=== PATIENT | female | born 1990 | race Caucasian/White ===

== ENCOUNTER 2020-03-17 06:21 | Inpatient (IN) | payer OTHER, SELFPAY ==
[2020-03-17] VITALS (51 sets, daily range): BP systolic 68–141; BP diastolic 43–96; PULSE 64–105; RESP 16; TEMP 36.6–37.1; O2SAT 99–100; BMI 28.9
--- OUTSIDE RECORDS SUMMARY | 2020-03-17 06:49 | XMS_ITS | Encounter Summary ---
:1990 Author Care Team Providers Name Role Phone Santo Barnes Primary Care Provider [phone] Reason for Visit None recorded. Assessment and Plan 1. Small for gestational age fet us ? US, obstetric, 3rd trimest er Discussion Note: None recorded.Patient educational handouts: No information available. Plan of Care Reminders Provider Appointments Ob Routine Manas Ashford CNM 03/20/2020 1:45PM Lab None ? ? recorded. Referral None ? ? recorded. Procedures None ? ? recorded. Surgeries None ? ? recorded. Imaging US, [place] [facility], 3Rd 01/19/2020 Trimester Medications Name Start Date ? ? ? Medications Administered None recorded. Vitals None recorded. Results Lab Results None recorded. Allergies Code Code System Name Reaction Severity Onset NKDA ? ? ? Problems Name Status Onset Date Source ? Active 09/14/2019 ? Procedures Date Name Performed by ?
--- OUTSIDE RECORDS SUMMARY | 2020-03-17 06:49 | XMS_ITS | Encounter Summary ---
:1990 Author Care Team Providers Name Role Phone Santo Barnes Primary Care Provider [phone] Reason for Visit None recorded. Assessment and Plan 1. Reduced movement ? non-stress test Discussion Note: None recorded.Patient educational handouts: No information available. Plan of Care Reminders Provider Appointments Ob Routine Manas Ashford CNM 03/20/2020 1:45PM Lab None ? ? recorded. Referral None ? ? recorded. Procedures None ? ? recorded. Surgeries None ? ? recorded. Imaging Non-stress [place] Test 03/13/2020 Medications Name Start Date ? ? ? Medications Administered None recorded. Vitals None recorded. Results Lab Results None recorded. Allergies Code Code System Name Reaction Severity Onset NKDA ? ? ? Problems Name Status Onset Date Source ? Active 09/14/2019 ? Procedures Date Name Performed by ?
--- OUTSIDE RECORDS SUMMARY | 2020-03-17 06:49 | XMS_ITS ---
:1990 Author Care Team Providers Name Role Phone YOAV MORALES Primary Care Provider [phone] Allergies Code Code System Name Reaction Severity Status Onset NKDA ? Medications Name Status Start Date Stop Date ? ? Boostrix Tdap 2.5 Lf unit-8 mcg-5 Completed ? 03/06/2020 Lf/0.5 mL intramuscular syringe Flublok Quad (PF) 180 mcg (45 Completed ? 03/06/2020 mcg x 4)/0.5 mL IM syringe Junel FE 05/01 (28) 1 mg-20 mcg (21)/75 Completed ? 08/16/2019 mg (7) tablet metoclopramide hydrochloride 10 mg Completed ? 03/06/2020 tabs ondansetron 4 mg disintegrating tablet Completed ? 03/06/2020 Place 1 tablet under tongue every 6-8 hours as needed for nause a ondansetron hydrochloride 8 mg tabs Completed ? 03/06/2020 ondansetron odt 4 mg tbdp Completed ? 03/06 Active ? Not available promethazine 25 mg tablet Completed ? 2019 Take 1 tablet every 4 hours by oral route. promethazine hydrochloride 25 mg tabs Completed ? 03/06/2020 Reglan 10 mg tablet Completed ? 03/06/2020 Take 1 tablet 4 times a day by oral route. Zofran 8 mg tablet Completed ? 03/06/2020 Take 1 tablet every 8 hours by oral route for 2 days. Problems Name Status Onset Date Source ? Active 09/14/2019 ? Procedures Date Name Performed by ?
--- OUTSIDE RECORDS SUMMARY | 2020-03-17 06:49 | XMS_ITS | Encounter Summary ---
:1990 Author Care Team Providers Name Role Phone Santo Barnes Primary Care Provider [phone] Reason for Visit OB visit OB [id number] EDC 03/23/2020 LMP 06/04/2019 Assessment and Plan Assessment Note Patient is __35_weeks . Dis cussed plan. 1. Routine care Discussion Note: None recorded.Patient educational handouts: No information available. Plan of Care Reminders Provider Appointments Ob Routine Manas Ashford CNM 03/20/2020 1:45PM Lab None ? ? recorded. Referral None ? ? recorded. Procedures None ? ? recorded. Surgeries None ? ? recorded. Imaging None ? ? recorded. Medications Name Start Date ? ? ? Medications Administered None recorded. Vitals Height Weight BMI Blood Pressure 5 ft 9.75 in 204 lbs 29.5 kg/m2 130/80 mm[Hg] Results Lab Results None recorded. Allergies Code Code System Name Reaction Severity Onset NKDA ? ? ? Problems Name Status Onset Date Source ? Pre
--- OUTSIDE RECORDS SUMMARY | 2020-03-17 06:49 | XMS_ITS | Encounter Summary ---
:1990 Author Care Team Providers Name Role Phone Santo Barnes Primary Care Provider [phone] Reason for Visit OB visit 30wks 6days Assessment and Plan Assessment Note Patient is ___weeks . Discu ssed plan. 1. Routine care Discussion Note: None [...] BMI Blood Pressure 5 ft 9.75 in 196 lbs 28.3 kg/m2 126/87 mm[Hg] Results Lab Results None recorded. Allergies Code Code System Name Reaction Severity Onset NKDA ? ? ? Problems Name Status Onset Date Source ? Active
--- OUTSIDE RECORDS SUMMARY | 2020-03-17 06:49 | XMS_ITS | Encounter Summary ---
:1990 Author Care Team Providers Name Role Phone Santo Barnes Primary Care Provider [phone] Reason for Visit None recorded. Assessment and Plan 1. condition affecting obs tetrical care of mother ? US, obstetric, follow-up ? US, obstetric, biophysical profile Discussion Note: None recorded.Patient educational handouts: No information available. Plan of Care Reminders Provider Appointments Ob Routine Manas Ashford CNM 03/20/2020 1:45PM Lab None recorded. ? ? Referral None recorded. ? ? Procedures None recorded. ? ? Surgeries None recorded. ? ? Imaging US, Obstetric, [place] Follow-up 01/04/2020 ? US, Obstetric, [place] Biophysical Profile 01/04/2020 Medications Name Start Date ? ? ? Medications Administered None recorded. Vitals None recorded. Results Lab Results None recorded. Allergies Code Code System Name Reaction Severity Onset NKDA ? ? ? Problems Name
--- OUTSIDE RECORDS SUMMARY | 2020-03-17 06:49 | XMS_ITS | Encounter Summary ---
:1990 Author Care Team Providers Name Role Phone Santo Barnes Primary Care Provider [phone] Reason for Visit OB visit OB [id number] EDC 03/23/2020 LMP 06/10/2019 Assessment and Plan Assessment Note Patient is ___weeks . Discu ssed plan. Discussion Note: None recorded.Patient educational handouts: No [...] BMI Blood Pressure 5 ft 9.75 in 188 lbs 27.2 kg/m2 128/80 mm[Hg] Results Lab Results None recorded. Allergies Code Code System Name Reaction Severity Onset NKDA ? ? ? Problems Name Status Onset Date Source ? Active 09/14/2019 ? Procedures
--- OUTSIDE RECORDS SUMMARY | 2020-03-17 06:49 | XMS_ITS | Encounter Summary ---
:1990 Author Care Team Providers Name Role Phone Santo Barnes Primary Care Provider [phone] Reason for Visit OB visit OB [id number] EDC 03/23/2020 LMP 06/10/2019 Assessment and Plan Assessment Note Patient is _36__weeks . Dis cussed plan. 1. Routine care [...] BMI Blood Pressure 5 ft 9.75 in 205 lbs 29.6 kg/m2 111/76 mm[Hg] Results Lab Results None recorded. Allergies Code Code System Name Reaction Severity Onset NKDA ? ? ? Problems Name Status Onset Date Source ? Pre
--- OUTSIDE RECORDS SUMMARY | 2020-03-17 06:49 | XMS_ITS | Encounter Summary ---
:1990 Author Care Team Providers Name Role Phone Santo Barnes Primary Care Provider [phone] Reason for Visit OB visit Assessment and Plan Assessment Note Patient is [...] BMI Blood Pressure 5 ft 9.75 in 198 lbs 28.6 kg/m2 118/74 mm[Hg] Results Lab Results None recorded. Allergies Code Code System Name Reaction Severity Onset NKDA ? ? ? Problems Name Status Onset Date Source ? Active 09/14/2019 ? Procedures
--- OUTSIDE RECORDS SUMMARY | 2020-03-17 06:49 | XMS_ITS | Encounter Summary ---
:1990 Author Care Team Providers Name Role Phone Santo Barnes Primary Care Provider [phone] Reason for Visit OB visit Assessment and Plan 1. Routine care Discussion Note: None recorded.Patient [...] ft 9.75 in 204 lbs 29.5 kg/m2 124/80 mm[Hg] Results Lab Results None recorded. Allergies Code Code System Name Reaction Severity Onset NKDA ? ? ? Problems Name Status Onset Date Source ? Active 09/14/2019 ? Procedures Date Name Performed by ?
--- OUTSIDE RECORDS SUMMARY | 2020-03-17 06:49 | XMS_ITS | Encounter Summary ---
:1990 Author Care Team Providers Name Role Phone Santo Barnes Primary Care Provider [phone] Reason for Visit None recorded. Assessment and Plan 1. Uterine size for dates discre pancy ? US, obstetric, follow-up Discussion Note: None recorded.Patient educational handouts: No information available. Plan of Care Reminders Provider Appointments Ob Routine Manas Ashford CNM 03/20/2020 1:45PM Lab None ? ? recorded. Referral None ? ? recorded. Procedures None ? ? recorded. Surgeries None ? ? recorded. Imaging , [place] [facility], Follow-up 01/22/2020 Medications Name Start Date ? ? ? Medications Administered None recorded. Vitals None recorded. Results Lab Results None recorded. Allergies Code Code System Name Reaction Severity Onset NKDA ? ? ? Problems Name Status Onset Date Source ? Active 09/14/2019 ? Procedures Date Name Performed by ?
--- OUTSIDE RECORDS SUMMARY | 2020-03-17 06:49 | XMS_ITS | Encounter Summary ---
:1990 Author Care Team Providers Name Role Phone Santo Barnes Primary Care Provider [phone] Reason for Visit OB visit Assessment and [...] BMI Blood Pressure 5 ft 9.75 in 202 lbs 29.2 kg/m2 116/73 mm[Hg] Results Lab Results None recorded. Allergies Code Code System Name Reaction Severity Onset NKDA ? ? ? Problems Name Status Onset Date Source ? Active 09/14/2019 ? Procedures
--- NOTE | 2020-03-17 06:56 | WPDANESEPP ---
Anes - Eval Pre Procedure Procedure: labor epidural Date/Time: 03/17/20 06:56 Surgeon: sabas Pre Op Diagnosis: SROM Patient Data Age: 29 Gender: F Height: Weight: Last Vital Signs Pulse 64 03/17/20 06:46 BP 126/81 03/17/20 06:46 Allergies Allergy/AdvReac Type Severity Reaction Status Date / Time No Known Allergies Allergy Verified 02/23/20 13:40 Home Medications Medication Instructions Recorded Confirmed Type PNV cmb#95-ferrous fumarate-FA 1 tablet PO DAILY 02/23/20 02/23/20 History [] Patient hx anesthesia problems: none Family hx anesthesia problems: none PMFSH Family History Family History (Updated 02/23/20 @ 13:41 by Payam Alcantar RN) Mother Diabetes mellitus Father Hypertension Social History Social History Substance use: never Gender identity (if verbalized by the patient): Female Spiritual care concerns: No Exam Day of Procedure 03/17/20 06:56
--- NOTE | 2020-03-17 07:29 | LDADM ---
This patient, Helen Belle, was admitted to Labor/Delivery/Recovery 106 on 03/17/20 at 06:21. Plans for labor, pain management and were discussed with patient. Patient/family oriented to hospital policies and general routines including ID bracelet, bed and alarms, visiting hours, pain management, procedures, bathroom and other care routines, personal items, smoking policy, room service/diet and guest tray routines, security routines, and visiting hours. Patient/Family are encouraged to report perceived risks to care and to ask questions if they do not understand what they are told or what they should do. See OBIX for further documentation.
[2020-03-17 07:32] LABS: Basophils Absolute Auto 0.1 K/mm3 (0.0-0.1); Basophils Percent Auto 0.5 % (0.2-1.2); Eosinophils Absolute Auto 0.1 K/mm3 (0-0.3); Eosinophils Percent Auto 1.1 % (0-4.4); Hematocrit 34.8 % (37.0-47.0); Hemoglobin 11.5 g/dL (12.0-15.0); Immature Granulocyte Absolute 0.26 K/mm3 (0.00-0.031); Immature Granulocyte Percent A 2.4 % (0-0.5); Lymphocytes Percent Auto 15.4 % (18.3-44.2); Mean Corpuscular Hemoglobin 29.5 pg (26-34); Mean Corpuscular Volume 89.2 fl (80-100); Monocytes Absolute Auto 0.5 K/mm3 (0.1-0.6); Monocytes Percent Auto 4.3 % (2.6-8.5); Neutrophils Absolute Auto 8.4 K/mm3 (1.3-6.7); Neutrophils Percent Auto 76.3 % (45.5-73.1); Platelet Count Result 283 k/mm3 (150-375); Red Cell Distribution Width 13.8 % (11.5-14.5)
[2020-03-17] MEDS: LACTATED RINGERS 1,000 ML 125 ML IV CONT (07:43)
[2020-03-17] MEDS: ONDANSETRON INJ 4 MG/2 ML VIAL IV PUSH (07:43)
--- NOTE | 2020-03-17 08:17 | WPDANESEFPP ---
Anes - Eval Final PreProcedure Day of Procedure 03/17/20 08:17 Patient weight: overweight Heart: regular rate and rhythm Lungs: clear to auscultation Neurological: alert and oriented ASA classification: II Emergent: no Anesthetic plan: proceed Anesthesia type and monitoring: regional epidural and standard monitoring Informed Consent: The patient's anesthetic plan and its attendant risks and benefits were discussed with the patient/family/POA. Questions were solicited and answers provided to the satisfaction of the patient/family/POA.
[2020-03-17] MEDS: OXYTOCIN 30 UNITS/NS 500 ML 30 UNITS/500 ML BAG 6 UNITS IV CONT (13:30)
--- NOTE | 2020-03-17 14:36 | P.PCNOB_ITS ---
OB - Delivery Note Procedure Delivery date: 03/17/20 Intrapartal events: None Induction method: none Delivery monitor: none Route of delivery: Laceration Description: Labial (Right labia spit in half. Repaired with 4 vicryl.) Delivery repair: vicryl Quantitative Blood Loss: 28 Anesthesia type: Epidural [place] Baby Date of : 03/17/20 Time of : 14:08 Weeks of gestation at delivery: 40 gender: Male Weight (pounds): 8 Weight (ounces): 3 presentation: vertex position: Right Occiput Anterior Placenta delivery description: Spontaneous score one minute: 8 score five minutes: 9 Narrative: Mother and baby in stable condition. Cord segement given to staff to collect gasses.
--- NOTE | 2020-03-17 14:39 | WPDOBADMIT ---
Obstetrics - Admit Note Admission Note: Pt here in spontaneous labor. record reviewed. No pertinent additions to the history and/or any subsequent changes in the physical findings that are not consistent with the expected course of the were found. Additions to the history and/or subsequent changes in the physical findings follow. None.
[2020-03-17] MEDS: WITCH HAZEL 40 PADS 1 PAD TOPICAL (16:40)
[2020-03-17] MEDS: BENZOCAINE 20% AER SPR (*SP) 56 GM CAN 1 SPRAY TOPICAL (16:40)
--- NOTE | 2020-03-17 18:45 | PC.NURSE ---
Patient transferred to post room #285 via wheelchair. Support person present. Oriented to unit, room, information board, rooming in, admission packet and security measures. Patient verbalizes understanding.
[2020-03-17] MEDS: IBUPROFEN 600 MG TABLET PO (19:03)
[2020-03-18] MEDS: IBUPROFEN 600 MG TABLET PO ×2 (02:49→15:27)
--- NOTE | 2020-03-18 07:04 | WPDANLDPN2 ---
Anes-Prog Note L&D Date/Time: 03/18/20 07:04 Comfortable throughout: labor and delivery Neuraxial method: epidural Epidural/Spinal procedure site: clean & non-tender Neuro status: Neuro function grossly intact. Cardiovascular status: normal Respiratory status: normal Airway patency: baseline Mental status: baseline Post-Op hydration status: normal Vital Signs: Last Vital Signs Temp 37.0 C 03/17/20 17:45 Pulse 91 03/17/20 19:15 Resp 16 03/17/20 19:15 BP 101/68 03/17/20 19:15 Pulse Ox 99 03/17/20 19:15 Pain score (VAS): 04/21 I/O: Intake & Output 03/17/20 03/17/20 03/18/20 15:59 23:59 07:59 Intake Total 1300 Output Total 133 Balance 1167 Post-procedural complaints: none Patient feedback: Patient satisfied with anesthetic care.
[2020-03-18] MEDS: MULTIVIT/MIN/PREN/FOL AC/IRON TABLET 1 TAB PO (07:37)
--- NOTE | 2020-03-18 07:52 | PM.OBPNVD ---
OB - PN: Subj Subjective Date/time seen: 03/18/20 07:52 Patient comments: no complaints baby status: doing well OB - PN: Obj Data Labs CBC & Chem 7: 03/18/20 05:18 Labs: Laboratory Results - last 24 hr 03/17/20 03/18/20 07:08 05:18 Hgb 10.0 L Hct 31.0 L Blood Type A Positive Antibody Screen Negative OB - PN A/P Plan day: 1 Plan: routine care Time Spent With Patient Time: Total time spent is greater than 50% in coordination of care (as documented) at patient's floor/unit and/or counseling patient: Time with patient: less than 15 minutes Review of Systems Review of Systems: All systems reviewed & are unremarkable except as noted in HPI and below Exam Narrative: Exam Narrative: Fundus firm and vaginal flow controlled. No lower ext redness, warmth, or edema. Negative homans. Const: General: comfortable Chest: Breast/axilla inspection: normal inspection of the breasts Resp: Effort & Inspection: normal respiratory effort Cardio: Rate: regular rate GI: GI Palp: Yes Soft to palpation Psych: Appearance: grossly normal Affect: normal affect Attitude: cooperative Thought content: Yes Normal thought content present Judgement: Good judgement present (Psych)
[2020-03-18 08:00] VITALS: BP 110/75; PULSE 83; RESP 18; TEMP 36.6; O2SAT 100
--- NOTE | 2020-03-18 09:19 | PC.NURSE ---
Consulted with patient, reviewed infant feeding cues, frequencies, duration of feedings, feeding elimination flow sheet, and signs of adequate intake. Demonstrated stimulation techniques to wake infant for feeding. Assisted with infant to breast. Reviewed positioning/alignment, holding breast and asymmetrical latch on. Infant was [able/unable] to latch correctly. nursed eagerly, with steady draws and [frequent/occasional] swallowing noted. Reviewed signs of a correct latch, effective nursing and suck swallow ratio. was[able/unable] to maintain latch without discomfort to mother. Nipple care reviewed. Instructed mother to call out for RN assistance if she is unable to latch for feeding or she has discomfort with nursing. Instructed feeding should be initiated three hours from start of last feeding or if feeding cues are noted before. Mother voiced understanding of information shared. Mother verbalizes she is able to independently latch infant with appropriate positioning/alignment. She denies any nipple discomfort, is feeding as required and waking to feed if needed. Infant has had [# of feedings] effective feedings in the past 24 hours, and is currently meeting outcomes for weight, output, jaundice and feeding frequencies. Mother states she feels confident to continue effective at home. Reviewed transition to breast milk, signs of adequate intake, and engorgement/relief. Instructed to call ICP if intake/output less than required. Reviewed regular medications mother is taking. Information provided per Daria. Reviewed community resources on the [facility] website and in the Mom/Baby guide. Information on outpatient services provided. Mother has no further questions at this time.
[2020-03-18 13:31] LABS: Rapid Plasma Reagin Non-Reactive (NonReactive)
--- NOTE | 2020-03-18 15:09 | PC.NURSE ---
Consulted with patient, reviewed feeding cues, frequencies, duration of feedings, feeding elimination flow sheet, and signs of adequate intake. Demonstrated stimulation techniques to wake for feeding. Assisted with to breast. Reviewed positioning/alignment, holding breast and asymmetrical latch on. was able/unable to latch correctly with nipple shield. nursed eagerly, with steady draws and occasional swallowing noted. Reviewed signs of a correct latch, effective nursing and suck swallow ratio. Infant was able to maintain latch without discomfort to mother. Infant sleepy during feeding and stimulation required to keep feeding. Nipple care reviewed. Instructed mother to call out for RN assistance if she is unable to latch infant for feeding or she has discomfort with nursing. Instructed feeding should be initiated three hours from start of last feeding or if feeding cues are noted before. Mother voiced understanding of information shared. Nipple shield being used by patient. Mother aware of how to apply and clean shield. Discussed nipple shield precautions and possible complications. Patient able to return demonstration on proper application of shield. Patient pumping after use of the shield. Patient verbalizes understanding.
[2020-03-18] MEDS: ACETAMINOPHEN 325 MG TABLET 650 MG PO (15:27)
[2020-03-18 20:00] VITALS: BP 118/68; PULSE 77; RESP 18; TEMP 36.8; O2SAT 99
[2020-03-19] MEDS: ACETAMINOPHEN 325 MG TABLET 650 MG PO ×2 (00:45→11:04)
[2020-03-19] MEDS: IBUPROFEN 600 MG TABLET PO ×2 (00:46→07:09)
[2020-03-19] MEDS: WITCH HAZEL 40 PADS 1 PAD TOPICAL (07:08)
[2020-03-19] MEDS: MULTIVIT/MIN/PREN/FOL AC/IRON TABLET 1 TAB PO (07:09)
--- NOTE | 2020-03-19 08:23 | PM.OBDSVD ---
DS: Admitting Diagnosis Admitting Diagnosis Admitting Diagnosis: SROM DS: Discharge Diagnosis Discharge Diagnosis (1) Vaginal delivery: Code(s): O80 - Encounter for full-term uncomplicated delivery Status: Acute OB - DS: Summary OB Procedures : None OB Procedures Intrapartum: Spontaneous Vag Delivery OB Procedures: : None Time Spent with Patient Time attestation: Total time spent providing and/or coordinating discharge services:15 DS: Data Data Completed and Pending Labs on day of discharge: Labs from last 24 hours 03/17/20 07:08 RPR Non-reactive Discharge Plan Discharge Discharging Clinician: Cleopatra Ashford Patient Disposition: Home, Self-Care Activity: pelvic rest Diet: as tolerated Patient Instructions: Antibiotic Form Stand Alone Forms: General Discharge Information Follow-up/Referrals: Cleopatra Ashford CNM [Primary Care Provider] - Discharge Medications: Continued PNV cmb#95-ferrous fumarate-FA [] 28 mg iron- 800 mcg Tablet 1 tablet PO DAILY RF: 0 Date of admission: 03/17/20 06:21 Primary Care Provider: Cleopatra Ashford Admitting Provider: Deborah Vergara Attending physician on admission: Deborah Vergara Condition: Stable
[2020-03-19 08:35] VITALS: BP 116/73; PULSE 90; RESP 16; TEMP 36.6; O2SAT 98
--- NOTE | 2020-03-19 10:04 | PC.NURSE ---
Patient viewed the discharge video Mother & Baby Care, The First Two Weeks . Patient was given the opportunity and encouraged to ask questions. Patient verbalized understanding of information shared and has been given the mother/baby guide for home reference.
--- NOTE | 2020-03-19 10:37 | PC.NURSE ---
Mother verbalizes she is able to independently latch with appropriate positioning/alignment. She denies any nipple discomfort, is feeding as required and waking to feed if needed. Infant has had 8-10 effective feedings in the past 24 hours, and is currently meeting outcomes for weight, output, jaundice and feeding frequencies. Mother states she feels confident to continue effective at home. Reviewed transition to breast milk, signs of adequate intake, and engorgement/relief. Instructed to call ICP if intake/output less than required. Reviewed community resources on the [facility] website and in the Mom/Baby guide. Information on outpatient services provided. Mother has no further questions at this time.
[2020-03-20 09:11] VITALS: BP 125/72; PULSE 92; RESP 16; TEMP 37.1; O2SAT 99
== END 2020-03-19 11:41 | disposition home or self-care (01) | DRG 807 ==
LOC: ANHLDR 06:47 → ANHOB2 17:16
PROVIDERS: Admitting Provider Obstetrics & Gynecology; PCP Advanced Practice Midwife; Visit Provider Obstetrics & Gynecology
DX: O70.0 First degree perineal laceration during delivery (principal); Z37.0 Single live birth; Z3A.40 40 weeks gestation of pregnancy
CPT/HCPCS: 36415; 84112; 85014; 85018; 85025; 86592; 86850; 86900; 86901; A9270; J2405; J2590; J2795; J7120

== ENCOUNTER 2020-07-25 12:26 | Outpatient (CLI) | payer OTHER, SELFPAY ==
--- NOTE | ~2020-07-25 | MMUS_ITS ---
EXAMINATION: MM diagnostic sonu BI w juan diego, US breast BI complete HISTORY: Bilateral breast pain. Breast feeding. TECHNIQUE: Additional 3-D tomosynthesis images of the breasts were performed and synthetic 2-D images were generated. CAD analysis was submitted and interpreted. High resolution bilateral complete breas t ultrasound was performed. COMPARISON: None BREAST PARENCHYMAL COMPOSITION: The breasts are extremely dense, which lowers the sensitivity of mamm ography. FINDINGS: MAMMOGRAPHIC FINDINGS: There are clips from previous benign bilateral breast biopsies. There is a 5 cm asymmetry inferiorly in the left breast, although not definitely demonstrated on the CC view. No discrete mass, architectu ral distortion or suspicious calcifications are identified in the right breast. ULTRASOUND: Right breast ultrasound: At 12:00, 2 cm from the nipple, there is a cluster of cysts measuring up to 12 mm. At 6:00, 1 cm from the nipple, there is a 5 mm complicated cyst. Complete left breast ultrasound including all 4 quadrants: At 10:00, 4 cm from the nipple, there is a slightly irregular shaped hypoechoic mass with parallel orientation, no internal vascularity feature s measuring 9 x 5 mm. There is mixed posterior attenuation. In the left breast behind the nipple ther e is a large hypoechoic mass with internal vascularity with ill-defined margins corresponding to the asymmetry seen on mammography. IMPRESSION: 1. Irregular shaped hypoechoic masses of the left breast inferiorly behind the nipple with ill-define d margins as well as a 9 mm mass at 10:00, 4 cm from the nipple. 2. Ultrasound-guided left breast biopsies recommended. BI-RADS category 4, suspicious findings. Reviewed, dictated and finalized at location A. IMPRESSION: 1. Irregular shaped hypoechoic masses of the left breast inferiorly behind the nipple with ill-defined margins as well as a 9 mm mass at 10:00, 4 cm from the nipple. 2. Ultrasound-guided left breast biopsies recommended. BI-RADS category 4, suspicious findings.
== END 2020-07-25 12:27 | disposition home or self-care (01) ==
PROVIDERS: PCP Advanced Practice Midwife; Visit Provider Advanced Practice Midwife
DX: N64.4 Mastodynia (principal); R92.8 Other abnormal and inconclusive findings on diagnostic imaging of breast
CPT/HCPCS: 76641; 77062; 77066; G0279

== ENCOUNTER 2022-04-01 16:45 | Observation (INO) | payer OTHER, SELFPAY ==
--- NOTE | 2022-04-01 17:12 | OBADM ---
This patient, Helen Belle, admitted to the OB room OB Post 115 for observation. Patient/family oriented to hospital policies and general routines including ID bracelet, bed and alarms, visiting hours, pain management, procedures, bathroom and other care routines, personal items, smoking policy, room service/diet, and visiting hours. Patient/Family are encouraged to report perceived risks to care and to ask questions if they do not understand what they are told or what they should do.
[2022-04-01] MEDS: DEXTROSE 5%/LACTATED RINGERS 1,000 ML 125 ML IV CONT ×2 (18:01→19:01)
[2022-04-01] MEDS: diphenhydrAMINE HCl INJ 50 MG/ML VIAL 25 MG IV PUSH (18:05)
[2022-04-01] MEDS: METOCLOPRAMIDE HCL INJ 10 MG/2 ML VIAL IV PUSH (18:05)
[2022-04-01 18:14] LABS: Basophils Percent Auto 0.7 % (0.2-1.2); Eosinophils Absolute Auto 0.1 K/mm3 (0-0.3); Eosinophils Percent Auto 1.3 % (0-4.4); Hematocrit 37.9 % (37.0-47.0); Immature Granulocyte Absolute 0.02 K/mm3 (0.00-0.031); Immature Granulocyte Percent A 0.3 % (0-0.5); Lymphocytes Absolute Auto 1.86 K/mm3 (0.9-3.2); Lymphocytes Percent Auto 30.2 % (18.3-44.2); Mean Corpuscular HGB Conc 34.3 g/dl (32-36); Mean Corpuscular Hemoglobin 30.1 pg (26-34); Mean Corpuscular Volume 87.7 fl (80-100); Mean Platelet Volume 10.2 fl (7.4-10.4); Monocytes Absolute Auto 0.6 K/mm3 (0.1-0.6); Monocytes Percent Auto 9.9 % (2.6-8.5); Neutrophils Absolute Auto 3.5 K/mm3 (1.3-6.7); Neutrophils Percent Auto 57.6 % (45.5-73.1); Platelet Count Result 262 k/mm3 (150-375); Red Blood Count 4.32 M/mm3 (4.2-5.4); Red Cell Distribution Width 12.5 % (11.5-14.5); White Blood Count 6.2 K/mm3 (4.5-10.0)
[2022-04-01 18:25] LABS: Alanine Aminotransferase 15 U/L (6-35); Albumin Level 4.3 g/dL (3.5-5.1); Alkaline Phosphatase 46 U/L (38-126); Anion Gap 8 mmol/L (8-16); Aspartate Amino Transferase 24 U/L (14-36); Bilirubin,Total 0.5 mg/dL (0.2-1.3); Blood Urea Nitrogen 13 mg/dL (7-17); Carbon Dioxide 23 mmol/L (22-30); Chloride 102 mmol/L (98-107); Estimated Glomerular Filt Rate > 60; Glucose 79 mg/dL (65-110); Sodium 133 mmol/L (137-145)
[2022-04-01 19:43] VITALS: BMI 24.2
--- NOTE | 2022-04-01 20:05 | PC.NURSE ---
Discharge instructions given, patient verbalized understanding, all discharge questions answered. D/C ambulatory in good condition.
--- NOTE | 2022-04-02 18:41 | PM.OBTRLD ---
OB - Triage/Final Diagnosis Visit Information Date of evaluation: 04/01/22 Reason for evaluation: other (dehydration) Comments/Additional reasons for admission: I have assessed the risk for this patient, Helen Belle, and determined that she would benefit from observation care. Evaluation Laboratory results: Laboratory Tests 04/01/22 04/01/22 04/01/22 17:06 17:06 17:06 WBC 6.2 RBC 4.32 Hgb 13.0 Hct 37.9 MCV 87.7 MCH 30.1 MCHC 34.3 RDW 12.5 Plt Count 262 MPV 10.2 Immature Gran % (Auto) 0.3 Neut % (Auto) 57.6 Lymph % (Auto) 30.2 [place] % (Auto) 9.9 H Eos % (Auto) 1.3 Baso % (Auto) 0.7 Lymph # (Auto) 1.86 [place] # (Auto) 0.6 Eos # (Auto) 0.1 Baso # (Auto) 0.0 Abs Immat Gran (auto) 0.02 Absolute Neuts (auto) 3.5 Absolute Nucleated RBC 0.0 Nucleated RBC % 0.0 Sodium 133 L Potassium 4.0 Chloride 102 Carbon Dioxide 23 Anion Gap 8 BUN 13 Creatinine 0.40 L Estim Creat Clear Calc Not Reportable Estimated GFR > 60 Glucose 79 Calcium 9.0 Total Bilirubin 0.5 AST 24 ALT 15 Alkaline Phosphatase 46 Total Protein 7.0 Albumin 4.3 Urine Color Cancelled Urine Appearance Cancelled Urine pH Cancelled Ur Specific [place] Cancelled Urine Protein Cancelled Urine Glucose (UA) Cancelled Urine Ketones Cancelled Ur Blood (Man) Cancelled Urine Nitrate Cancelled Urine Bilirubin Cancelled Urine Urobilinogen Cancelled Leukocyte Esterase Rfl Cancelled Urine RBC Cancelled Urine WBC Cancelled Urine WBC Clumps Cancelled Ur Squamous Epith Cells Cancelled Ur Transition Epith Cell Cancelled Ur Renal Epithelial Cell Cancelled [place] Biurate Crystals Cancelled Calcium Carbonate Cryst Cancelled Calcium Phosphate Cryst Cancelled Calcium Oxalate Crystal Cancelled Leucine Crystals Cancelled Cystine Crystals Cancelled Uric Acid Crystals Cancelled Triple Phos Crystals Cancelled Sulfonamide Crystals Cancelled Cholesterol Crystals Cancelled Talc Crystals Cancelled Tyrosine Crystals Cancelled Hippuric Acid Crystals Cancelled Other Crystals Cancelled Amorphous Sediment Cancelled Other Sediment Cancelled Urine Bacteria Cancelled Cellular Casts Cancelled Epithelial Casts Cancelled Fatty Casts Cancelled Hyaline Casts Cancelled Granular Casts Cancelled Waxy Casts Cancelled RBC Casts Cancelled WBC Casts Cancelled Urine Starch Cancelled Urine Mucus Cancelled Urine Trichomonas Cancelled Urine Yeast (Budding) Cancelled Ur Oval Fat Bodies Cancelled
== END 2022-04-01 20:05 | disposition home or self-care (01) ==
PROVIDERS: Advanced Practice Midwife; Admitting Provider Obstetrics & Gynecology; Visit Provider Obstetrics & Gynecology
DX: O26.891 Other specified pregnancy related conditions, first trimester (principal); E86.0 Dehydration; Z3A.08 8 weeks gestation of pregnancy
CPT/HCPCS: 36415; 80053; 85025; 96361; 96374; 96375; G0378; G0379; J1200; J2765; J7121

== ENCOUNTER 2022-10-29 14:08 | Inpatient (IN) | payer OTHER, SELFPAY ==
[2022-10-29] VITALS (88 sets, daily range): BP systolic 79–134; BP diastolic 43–110; PULSE 63–113; TEMP 37.3–37.5; O2SAT 86–100; BMI 26.7
--- NOTE | 2022-10-29 14:08 | LDADM ---
This patient, Helen Belle, was admitted to Labor/Delivery/Recovery 105 on 10/29/22 at 14:08. Plans for labor, pain management and were discussed with patient. Patient/family oriented to hospital policies and general routines including ID bracelet, bed and alarms, visiting hours, pain management, procedures, bathroom and other care routines, personal items, smoking policy, room service/diet and guest tray routines, security routines, and visiting hours. Patient/Family are encouraged to report perceived risks to care and to ask questions if they do not understand what they are told or what they should do. See OBIX for further documentation.
[2022-10-29 15:44] LABS: Basophils Absolute Auto 0.1 K/mm3 (0.0-0.1); Basophils Percent Auto 0.5 % (0.2-1.2); Eosinophils Absolute Auto 0.1 K/mm3 (0-0.3); Eosinophils Percent Auto 0.7 % (0-4.4); Hemoglobin 10.9 g/dL (12.0-15.0); Immature Granulocyte Absolute 0.26 K/mm3 (0.00-0.031); Immature Granulocyte Percent A 1.8 % (0-0.5); Lymphocytes Absolute Auto 2.14 K/mm3 (0.9-3.2); Lymphocytes Percent Auto 14.5 % (18.3-44.2); Mean Corpuscular Hemoglobin 30.1 pg (26-34); Mean Corpuscular Volume 91.2 fl (80-100); Mean Platelet Volume 10.4 fl (7.4-10.4); Monocytes Absolute Auto 0.9 K/mm3 (0.1-0.6); Monocytes Percent Auto 5.8 % (2.6-8.5); Neutrophils Absolute Auto 11.3 K/mm3 (1.3-6.7); Neutrophils Percent Auto 76.7 % (45.5-73.1); Platelet Count Result 306 k/mm3 (150-375); Red Blood Count 3.62 M/mm3 (4.2-5.4); Red Cell Distribution Width 13.4 % (11.5-14.5); White Blood Count 14.8 K/mm3 (4.5-10.0)
[2022-10-29] MEDS: LACTATED RINGERS 1,000 ML 125 ML IV CONT ×2 (15:48→19:03)
[2022-10-29] MEDS: OXYTOCIN 30 UNITS/NS 500 ML 30 UNITS/500 ML BAG IV CONT (15:49)
--- NOTE | 2022-10-29 16:46 | WPDOBADMIT ---
Obstetrics - Admit Note Admission Note: record reviewed. No pertinent additions to the history and/or any subsequent changes in the physical findings that are not consistent with the expected course of the were found. SROM, pt admitted to , uncomplicated, IUPC placed, SVE 3-4/70/-2, anticipate vaginal delivery Additions to the history and/or subsequent changes in the physical findings follow. None.
--- NOTE | 2022-10-29 18:37 | P.PNAN_ITS ---
Anes - Eval Pre Procedure Procedure: labor epidural Date/Time: 10/29/22 18:37 Surgeon: sarah Preop Diagnosis: pain during labor Pre Op Diagnosis: Labor Patient Data Age: 32 Gender: F Height: 1.8 m Weight: 87 kg Last Vital Signs Temp 37.5 C 10/29/22 17:27 Pulse 76 10/29/22 18:30 BP 129/81 10/29/22 18:30 Pulse Ox 100 10/29/22 18:36 Allergies Allergy/AdvReac Type Severity Reaction Status Date / Time No Known Allergies Allergy Verified 10/06/22 13:29 Home Medications Medication Instructions Recorded Confirmed Type vit no.95-ferrous 1 tablet PO DAILY 02/23/20 10/06/22 History fumarate 28 mg-folic acid 800 mcg tablet () Laboratory Tests 10/29/22 15:28 WBC 14.8 H K/mm3 (4.5-10.0) RBC 3.62 L M/mm3 (4.2-5.4) Hgb 10.9 L g/dL (12.0-15.0) Hct 33.0 L % (37.0-47.0) MCV 91.2 fl (80-100) MCH 30.1 pg (26-34) MCHC 33.0 g/dl (32-36) RDW 13.4 % (11.5-14.5) Plt Count 306 k/mm3 (150-375) MPV 10.4 fl (7.4-10.4) Immature Gran % (Auto) 1.8 H % (0-0.5) Neut % (Auto) 76.7 H % (45.5-73.1) Lymph % (Auto) 14.5 L % (18.3-44.2) [place] % (Auto) 5.8 % (2.6-8.5) Eos % (Auto) 0.7 % (0-4.4) Baso % (Auto) 0.5 % (0.2-1.2) Lymph # (Auto) 2.14 K/mm3 (0.9-3.2) [place] # (Auto) 0.9 H K/mm3 (0.1-0.6) Eos # (Auto) 0.1 K/mm3 (0-0.3) Baso # (Auto) 0.1 K/mm3 (0.0-0.1) Abs Immat Gran (auto) 0.26 H K/mm3 (0.00-0.031) Absolute Neuts (auto) 11.3 H K/mm3 (1.3-6.7) Absolute Nucleated RBC 0.0 K/mm3 (0.0-0.012) Nucleated RBC % 0.0 % (0.0-0.2) RPR Pending Blood Type A Positive Antibody Screen Negative Patient hx anesthesia problems: none Family hx anesthesia problems: none Results Review: All pre-operative results and documents have been reviewed as part of the pre- operative evaluation. [facility] Family History Family History (Updated 10/06/22 @ 13:52 by Elke Love RN) Mother Diabetes mellitus Breast cancer Father Hypertension Grandparent Diabetes mellitus Social History Social History (System 04/02/22 @ 09:33 by Brandon Zurita) Smoking status: Never smoker Substance use: never Lack of Transportation: No Lack of Food: Never True Current Housing: I Have Housing Concerned About Future Housing: No Difficulty Paying Gas/Electric Bills: No Difficulty Paying for Meds: No Currently Unemployed: No Education: Master's Degree or Higher Difficulty w/ Childcare or Family Care: No Gender identity (if verbalized by the patient): Female Spiritual care concerns: No Exam Day of Procedure 10/29/22 18:37
[2022-10-29] MEDS: AMPICILLIN 2 GM/NS 100 ML 2 GM/100 ML BAG IVPB (22:00)
--- NOTE | 2022-10-29 22:33 | PM.OBPRVD ---
OB - Delivery Note Procedure Delivery date: 10/29/22 Procedure: Delivery monitor: External FHT and Internal Uterine Route of delivery: Laceration Description: Labial (right) Delivery repair: vicryl Quantitative Blood Loss (ml): 250 Anesthesia type: Epidural Disposition: Floor Narrative: With adequate expulsive efforts by the mother, the baby's head was delivered OA. The baby's anterior shoulder was delivered under the pubic symphysis without difficulty. The posterior shoulder and the rest of the baby delivered without difficulty. The infant was placed on the mothers chest and suctioned and stimulated. The cord was clamped and cut after 30 seconds. Mother and baby both stable. Baby Date of : 10/29/22 Time of : 22:05 Weeks of gestation at delivery: 39 gender: Male presentation: vertex Placenta delivery description: Spontaneous Cord Vessel Description: 3 Vessels and Delayed Cord Clamping score one minute: 8 score five minutes: 9
[2022-10-30] VITALS (7 sets, daily range): BP systolic 107–138; BP diastolic 62–81; PULSE 66–84; RESP 16–18; TEMP 36.4–37.4; O2SAT 97–100
[2022-10-30] MEDS: IBUPROFEN 600 MG TABLET PO ×3 (01:01→16:48)
--- NOTE | 2022-10-30 06:45 | PC.NURSE ---
Patient transferred to post room #283 via wheelchair. Support person present. Oriented to unit, room, information board, rooming in, admission packet and security measures. Patient verbalizes understanding.
[2022-10-30 07:37] LABS: Hematocrit 32.6 % (37.0-47.0); Hemoglobin 10.9 g/dL (12.0-15.0)
--- NOTE | 2022-10-30 08:44 | P.PNOB_ITS ---
OB - PN: Subj Subjective Date/time seen: 10/30/22 08:44 Patient comments: no complaints and pain well controlled baby status: nursing well [facility] feeding status: exclusively breast feeding OB - PN: Obj Data Labs 10/30/22 06:25 Labs: Laboratory Results - last 24 hr 10/29/22 10/30/22 15:28 06:25 WBC 14.8 H RBC 3.62 L Hgb 10.9 L 10.9 L Hct 33.0 L 32.6 L MCV 91.2 MCH 30.1 MCHC 33.0 RDW 13.4 Plt Count 306 MPV 10.4 Immature Gran % (Auto) 1.8 H Neut % (Auto) 76.7 H Lymph % (Auto) 14.5 L [place] % (Auto) 5.8 Eos % (Auto) 0.7 Baso % (Auto) 0.5 Lymph # (Auto) 2.14 [place] # (Auto) 0.9 H Eos # (Auto) 0.1 Baso # (Auto) 0.1 Abs Immat Gran (auto) 0.26 H Absolute Neuts (auto) 11.3 H Absolute Nucleated RBC 0.0 Nucleated RBC % 0.0 Blood Type A Positive Antibody Screen Negative OB - PN A/P Plan day: 1 Plan: routine care Time Spent With Patient Time: Total time spent is greater than 50% in coordination of care (as documented) at patient's floor/unit and/or counseling patient: Time with patient: less than 15 minutes Exam Narrative: NAD abdomen soft, nontender, fundus firm below the umbilicus Extremities nontender, 1+ edema
[2022-10-30] MEDS: MULTIVIT/MIN/PREN/FOL AC/IRON TABLET 1 TAB PO (09:36)
--- NOTE | 2022-10-30 14:24 | WPDANLDPN2 ---
Anes-Prog Note L&D Date/Time: 10/30/22 14:24 Neuro status: Neuro function grossly intact. Vital Signs: Last Vital Signs Temp 36.4 C 10/30/22 07:10 Pulse 71 10/30/22 07:10 Resp 18 10/30/22 07:10 BP 107/63 10/30/22 07:10 Pulse Ox 97 10/30/22 07:10 O2 Del Method Room Air 10/30/22 01:50 Pain score (VAS): 0 I/O: Intake & Output 10/29/22 10/30/22 10/30/22 23:59 07:59 15:59 Intake Total 1000 Output Total 300 Balance 1000 -300 Patient feedback: Patient satisfied with anesthetic care.
[2022-10-30 15:51] LABS: Rapid Plasma Reagin Non-Reactive (NonReactive)
[2022-10-30] MEDS: ACETAMINOPHEN 325 MG TABLET 650 MG PO (19:21)
[2022-10-31] MEDS: IBUPROFEN 600 MG TABLET PO (04:05)
[2022-10-31] MEDS: ACETAMINOPHEN 325 MG TABLET 650 MG PO (07:49)
--- NOTE | 2022-10-31 08:32 | PM.OBPNVD ---
OB - PN: Subj Subjective Date/time seen: 10/31/22 08:32 Patient comments: no complaints, pain well controlled and tolerating diet OB - PN: Obj Data Labs 10/30/22 06:25 Labs: Laboratory Results - last 24 hr 10/29/22 15:28 RPR Non-reactive OB - PN A/P Plan day: 2 Plan: routine care and discharge home Time Spent With Patient Time: Total time spent is greater than 50% in coordination of care (as documented) at patient's floor/unit and/or counseling patient: Exam Const: General: comfortable and no acute distress Resp: Effort & Inspection: normal respiratory effort Auscultation: no rales, no rhonchi and no wheezes Cardio: Rate: regular rate Heart sounds: no click, no murmurs and no rubs GI: GI Palp: Yes Soft to palpation and No Tenderness to palpation present (GI) Auscultation: normal bowel sounds Extrem: General: normal to inspection, no pedal edema and no calf tenderness
--- NOTE | 2022-10-31 08:33 | PM.OBDSVD ---
DS: Admitting Diagnosis Discharge Date 10/31/2022 Admitting Diagnosis term DS: Discharge Diagnosis Discharge Diagnosis (1) Vaginal delivery: Code(s): O80 - Encounter for full-term uncomplicated delivery Status: Acute OB - DS: Summary OB Procedures : None OB Procedures Intrapartum: Spontaneous Vag Delivery OB Procedures: : None Time Spent with Patient Time attestation: Total time spent providing and/or coordinating discharge services: DS: Data Data Completed and Pending Labs on day of discharge: Labs from last 24 hours 10/29/22 15:28 RPR Non-reactive Discharge Plan Discharge Discharging Clinician: Deborah Vergara Patient Disposition: Home, Self-Care Activity: pelvic rest Diet: regular Patient Instructions: Antibiotic Form Stand Alone Forms: General Discharge Information Follow-up/Referrals: Deborah Vergara MD [Physician] - Discharge Medications: Continued PNV cmb#95-ferrous fumarate-FA [] 28 mg iron- 800 mcg Tablet 1 tablet PO DAILY Date of admission: 10/29/22 14:08 Primary Care Provider: PHYSICIAN,DIET TECHNICIAN REGISTERED Admitting Provider: Brigitte Nguyen Attending physician on admission: Brigitte Nguyen Condition: Stable
[2022-10-31 09:00] VITALS: BP 110/72; PULSE 72; RESP 18; TEMP 36.6; O2SAT 100
[2022-10-31] MEDS: MULTIVIT/MIN/PREN/FOL AC/IRON TABLET 1 TAB PO (09:22)
[2022-11-02 10:27] VITALS: BP 115/73; PULSE 78; RESP 18; TEMP 36.9; O2SAT 100
== END 2022-10-31 11:25 | disposition home or self-care (01) | DRG 807 ==
LOC: ANHLDR 15:37 → ANHOB2 10-31 08:34 → ANHLDR 11-03 08:56 → ANHOB2 11-03 08:56 → ANHOBPP 11-03 08:56
PROVIDERS: Advanced Practice Midwife; Admitting Provider Obstetrics & Gynecology; Visit Provider Obstetrics & Gynecology
DX: O42.02 Full-term premature rupture of membranes, onset of labor within 24 hours of rupture (principal); Z37.0 Single live birth; Z3A.39 39 weeks gestation of pregnancy; O63.0 Prolonged first stage (of labor)
CPT/HCPCS: 36415; 84112; 85014; 85018; 85025; 86592; 86850; 86900; 86901; A9270; J0290; J2590; J2795; J7120

== ENCOUNTER 2024-12-14 21:38 | Observation (INO) | payer OTHER, SELFPAY ==
--- NOTE | ~2024-12-14 | US_ITS ---
EXAMINATION: US OB <=14 wk fetus w TV DATE: 12/15/2024 08:54 INDICATION: Incomplete portion TECHNIQUE: Real-time pelvic ultrasound utilizing both a transvaginal and transabdominal probe was performed. The interpreting radiologist was not present for the study. COMPARISON: None. FINDINGS: The uterus measures 10.5 x 5.7 x 6.8 cm. There is an intrauterine gestational sac with mean sac diameter of 2.5 cm. There is thin curvilinear membrane within the likely gestational sac likely representing the amniotic sac. Along this is a 2 mm echogenic focus along the membrane which could represent either a small yolk sac or pole. The mean sac diameter would correlate with an estimated gestational age of 7 weeks and 4 days. No evident heart motion on the cine grayscale imaging or color Doppler. There is a 1.8 x 1.2 x 0.4 cm hypoechoic focus of chronic hematoma along the right superior aspect of the gestational sac. The right ovary measures 3.2 x 2.4 x 3.1 cm. The left ovary measures 3.2 x 3.1 x 1.7 cm. Mass or flow identified in both ovaries on color Doppler. 1.3 cm hypoechoic likely corpus luteum cyst at the left ovary. There is no free fluid in the pelvis. IMPRESSION: 1. Single intrauterine gestational sac with mean sac diameter of 2.5 cm with 2 mm echogenic focus along the amniotic sac potentially either a yolk sac or pole without discernible heart motion which could be due to either failed or early stage of . Recommend follow-up with serial beta-hCG levels with short interval repeat imaging as clinically indicated to confirm viability and establish estimated gestational age. 2. Small subchorionic hematoma measuring 1.8 x 1.2 x 0.4 cm. Reviewed, dictated and finalized at location A. IMPRESSION: 1. Single intrauterine gestational sac with mean sac diameter of 2.5 cm with 2 mm echogenic focus along the amniotic sac potentially either a yolk sac or feta l pole without discernible heart motion which could be due to either fail ed or early stage of . Recommend follow-up with serial beta- hCG levels with short interval repeat imaging as clinically indicated to confir m viability and establish estimated gestational age. 2. Small subchorionic hematoma measuring 1.8 x 1.2 x 0.4 cm.
[2024-12-14 21:43] VITALS: BP 121/80; PULSE 85; RESP 18; TEMP 36.6; O2SAT 100
--- OUTSIDE RECORDS SUMMARY | 2024-12-14 22:33 | XMS_ITS | Clinical Summary ---
Author Organization [facility] Address [address] [place] [address] Phone Care Team Providers Care Horticultural Specialty Grower Name Role Phone Unknown, Notinfile Primary Care Provider Unavail able Allergies No known active allergies Medications levonorgestreL (Mirena) IUD Mirena 20 mcg/24 hours (6 yrs) 52 mg intrauterine device Take by intrauterine route. Active Active Problems Problem Noted Date Diagnosed Date Abnormal findings on diagnostic imaging of breas t 09/02/2020 Surgical History Surgery Date Site/Laterality Comments BREAST BIOPSY TONSILLECTOMY BREAST BIOPSY 09/11/2020 Left Family History Medical History Relation Name Comments Breast cancer Mother Relation Name Status Comments Mother Social History Tobacco Use Types Packs/Day Years Used Date Smoking Tobacco: Never Personal Safety Answer Date Recorded Getting School Help Needed Not on file 06/11 Comments Unknown Sex and Gender Information Value Date Recorded Sex Assigned at Not on file Legal Sex Female 8:44 AM CDT Gender Identity Not on file Sexual Orientation Not on file Obstetrics History Last Filed Vital Signs Vital Sign Reading Time Taken Comments Blood Pressure - - Pulse - - Temperature - - Respiratory Rate - - Oxygen Saturation - - Inhaled Oxygen Concentration - - Weight 72.6 kg (160 lb) 08/28/2020 10:25 AM CDT Height 177.8 cm (5' 10) 08/28/2020 10:25 AM CDT Body Mass Index 22.96 08/28/2020 10:25 AM CDT Plan of Treatment Not on file Insurance [address] [address] [facility] Care Teams Horticultural Specialty Grower Relationship Specialty Start Date End Date Unknown, Notinfile PCP - General 09/20/24
--- OUTSIDE RECORDS SUMMARY | 2024-12-14 22:33 | XMS_ITS | Clinical Summary ---
Author Organization [facility] Address [address] [place] [address] Phone Care Team Providers Care Sole Dyer Name Role Phone Santo Barnes MD Primary Care Provider [phone] Allergies No known active allergies Medications ondansetron (ZOFRAN) 4 mg Tablet Take 4 mg by mouth every 8 hours as needed for Nausea/Emes is. Active PNV no.153/FA/om3/dh a/epa/fish ( GUMMIES ORAL) Take by mouth. Active Active Problems Patient Care Coordination No te Formatting of this note migh t be different from the original. Primary Care: No primary provider on file. Referring Provider: [place] [place] [address] Other: Problem Noted Date Diagnosed Date Family history of malignant neoplasm of breast 0 09/07/2019 Inverted nipple 09/07/2019 Increased risk of breast cancer 09/07/2019 Abnormal ultrasound of breast 11/30/2017 Fibroadenoma, left 11/19/2017 Breast lump 12/11/2015 Acne 07/18/2010 Comments Yes Family History Medical History Relation Name Comments Healthy Brother Healthy Father Diabetes Maternal Grandfather Emphysema Maternal Grandmother Diabetes Maternal Uncle Breast Cancer Mother Diabetes Mother Healthy Sister Cancer Neg Hx Ovarian Cancer Neg Hx Relation Name Status Comments Brother Alive Father Alive Maternal Grandfather Maternal Grandmother Maternal Uncle Mother Alive Sister Alive Social History Tobacco Use Types Packs/Day Years Used Date Smoking Tobacco: Never Smokeless Tobacco: Never Alcohol Use Standard Drinks/Week Comments Not Currently 0 (1 standard drink = 0.6 oz pur e alcohol) rare Comments Yes Sex and Gender Information Value Date Recorded Sex Assigned at Not on file Legal Sex Female 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 Gender Identity Not on file Sexual Orientation Not on file 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 on file Not on file Not on file Last Filed Vital Signs Vital Sign Reading Time Taken Comments Blood Pressure 124/62 09/07/2019 11:16 AM CDT Pulse 72 10/05/2018 8:49 AM CDT Temperature 37.2 C (99 F) 09/07/2019 11:16 AM CDT Respiratory Rate - - Oxygen Saturation 98% 10/05/2018 8:49 AM CDT Inhaled Oxygen Concentration - - Weight 65.3 kg (144 lb) 09/07/2019 11:16 AM CDT Height 180.3 cm (5' 11) 09/07/2019 11:16 AM CDT Body Mass Index 20.08 09/07/2019 11:16 AM CDT Plan of Treatment Health Maintenance Due Date Last Done Comments DTAP/TDAP/TD VACCINES (1 - Tdap) 2008 09/24/18 95 HPV/Cotest (21-29) 2010 HPV VACCINES (1 - 3-dose SCD M series) 2016 CERVICAL CANCER SCREENING 09/29/2019 HPV/Cotest (30-65) 09/29/2019 PAP SMEAR 09/29/2019 INFLUENZA VACCINE (#1) 2024 01/10/2014, 2013 RSV VACCINE (60+ or ) (1 - 1-dose 75+ series) 2064 HEPATITIS B VACCINES Completed 02/11/2000, 10/16/1999, 02/20/1999 Insurance [facility] [employer] PPO [id number] Care Teams Sole Dyer Relationship Specialty Start Date End Date Santo Barnes MD [address] [address] [place] [place] [phone] PCP - General Internal Medicine 09/07/19
[2024-12-14 22:36] LABS: Hematocrit 34.3 % (37.0-47.0); Hemoglobin 11.4 g/dL (12.0-15.0); Immature Granulocyte Percent A 0.2 % (0-0.5); Lymphocytes Absolute Auto 2.39 K/mm3 (0.9-3.2); Mean Corpuscular HGB Conc 33.2 g/dl (32-36); Mean Corpuscular Hemoglobin 30.6 pg (26-34); Mean Corpuscular Volume 92.0 fl (80-100); Nucleated Red Blood Cells Absolute Auto 0.000 K/mm3 (0.0-0.012); Nucleated Red Blood Cells Perc 0.0 % (0.0-0.2); Platelet Count Result 227 k/mm3 (150-375); Red Blood Count 3.73 M/mm3 (4.2-5.4); White Blood Count 6.1 K/mm3 (4.5-10.0)
[2024-12-14 22:48] LABS: Alanine Aminotransferase 15 U/L (6-35); Albumin Level 4.1 g/dL (3.5-5.1); Alkaline Phosphatase 40 U/L (38-126); Anion Gap 4 mmol/L (4-12); Aspartate Amino Transferase 22 U/L (14-36); Bilirubin,Total < 0.1 mg/dL (0.2-1.3); Blood Urea Nitrogen 17 mg/dL (7-17); Calcium 9.3 mg/dL (8.4-10.2); Carbon Dioxide 27 mmol/L (22-30); Chloride 104 mmol/L (98-107); Estimated CRCL calculation 110 ml/min; Estimated Glomerular Filt Rate > 60; Glucose 89 mg/dL (65-110); INR 0.9; Potassium 3.8 mmol/L (3.4-5.0); Prothrombin Time 12.3 Seconds (11.1-14.7); Sodium 135 mmol/L (137-145); Total Protein 6.6 g/dL (6.3-8.2)
[2024-12-14 22:49] LABS: Partial Thromboplastin Time 24.7 Seconds (22.3-36.8)
[2024-12-14 23:04] LABS: Beta HCG Quantitative 10287.00 mIU/ML
--- NOTE | 2024-12-14 23:22 | ED.PREGNANCY ---
HPI - General Chief complaint: Vaginal Bleeding <Mariana Lang APRN - Last Filed: 12/15/24 02:00> Stated complaint: miscarriage x few weeks, non stop bleeding/clots <Mariana Lang APRN - Last Filed: 12/15/24 02:00> Time Seen by Provider: 12/14/24 22:24 <Mariana Lang APRN - Last Filed: 12/15/24 02:00> History of Present Illness HPI Narrative: Patient is a 34-year-old female who presents to the ER with vaginal bleeding following a miscarriage. She reports her last menstrual period was September 20, 2024. Patient reports she has had weekly ultrasounds with her OBGYN and they were never able to detect a heart rate. She reports she was approximately 9 weeks when she miscarried. Patient reports she has had a moderate amount of vaginal bleeding and intermittent cramping since the diagnosis, but today around 4:30 p.m. she started passing ?large blood clots. She reports I have been bleeding through everything. Patient reports this is her 3rd with 2 vaginal deliveries. She reports her hCG levels have dropped from 31,000 down to 12,000 on Wednesday, 2 days ago. Patient reports she spoke with Dr. Vergara who advised her to come into the ER for further evaluation. She denies any urinary symptoms, recent fevers, or back pain. Patient denies any medical history relevant to this ER visit. <Mariana Lang APRN - Last Filed: 12/15/24 02:00> Related Data Home medications: Home Medications ?Medication ?Instructions ?Recorded ?Confirmed ?Last Taken ?Type vit no.95-ferrous 1 tablet PO DAILY 02/23/20 12/15/24 1 Day Ago History fumarate 28 mg-folic acid 800 mcg ~10/05/22 tablet () <Mariana Lang APRN - Last Filed: 12/15/24 02:00> Allergies/Adverse reactions: Allergies Allergy/AdvReac Type Severity Reaction Status Date / Time No Known Allergies Allergy Verified 12/15/24 04:56 <Mariana Lang APRN - Last Filed: 12/15/24 02:00> Review of Systems Review of Systems: All systems reviewed & are unremarkable except as noted in HPI and below <Mariana Lang APRN - Last Filed: 12/15/24 02:00> PMFSH Family History Family History: Family History Mother Diabetes mellitus Breast cancer Father Hypertension Grandparent Diabetes mellitus <Mariana Lang APRN - Last Filed: 12/15/24 02:00> Social History Social History: Social History Smoking status: Never smoker Substance use: never Lack of Transportation: No Lack of Food: Never True Current Housing: Decline to Answer Concerned About Future Housing: No Difficulty Paying Gas/Electric Bills: No Difficulty Paying for Meds: No Currently Unemployed: No Education: Bachelor's Degree Difficulty w/ Childcare or Family Care: No Gender identity (if verbalized by the patient): Female Spiritual care concerns: No <Mariana Lang APRN - Last Filed: 12/15/24 02:00> Exam Narrative: GENERAL: Well appearing, well-nourished, non-toxic, in no acute distress. HEAD: Normocephalic, atraumatic. NECK: Supple. No adenopathy, no masses. RESPIRATORY: Airway patent, respirations nonlabored. Clear to auscultation bilaterally, no rales, rhonchi, wheezing. CARDIOVASCULAR: Regular rate and rhythm without murmurs, rubs, or gallops. Peripheral pulses 2+ and equal bilaterally. ABDOMINAL: Soft, nontender, nondistended, no hepatosplenomegaly. Normoactive BS. MUSCULOSKELETAL: Moves all extremities. Strength/ROM intact without gross deformities. SKIN: Warm, dry, normal color. No rashes. NEURO: A&O X3. Speech clear. Cranial nerves II-XII intact. No ataxic movements. PSYCHIATRIC: Appropriate mood and affect. Normal interaction. : Pt has a large amount of dark red blood pooling in her vaginal canal. One small blood clots noted coming from cervical os. <Mariana Lang APRN - Last Filed: 12/15/24 02:00> Course GERIATRIC NURSE/PA Physician Supervision This visit was performed by both a physician and an APC. For this patient encounter, I reviewed the GERIATRIC NURSE or PA documentation, treatment plan, and medical decision making and had [id number] time with this patient. I performed all aspects of the MDM as documented. <Ana Rosa Busby MD - Last Filed: 12/15/24 06:03> Vital Signs Vital signs: Vital Signs Temperature 97.9 F 12/14/24 21:43 Pulse Rate 85 12/14/24 21:43 Respiratory Rate 18 12/14/24 21:43 Blood Pressure 121/80 12/14/24 21:43 Pulse Oximetry 100 12/14/24 21:43 Temperature 97.9 F 12/14/24 21:43 Pulse Rate 85 12/14/24 21:43 Respiratory Rate 18 12/14/24 21:43 Blood Pressure 121/80 12/14/24 21:43 Pulse Oximetry 100 12/14/24 21:43 <Mariana Lang APRN - Last Filed: 12/15/24 02:00> Vital Signs Temperature 97.9 F 12/14/24 21:43 Pulse Rate 85 12/14/24 21:43 Respiratory Rate 18 12/14/24 21:43 Blood Pressure 121/80 12/14/24 21:43 Pulse Oximetry 100 12/14/24 21:43 Temperature 97.9 F 12/14/24 21:43 Pulse Rate 85 12/14/24 21:43 Respiratory Rate 18 12/14/24 21:43 Blood Pressure 121/80 12/14/24 21:43 Pulse Oximetry 100 12/14/24 21:43 <Ana Rosa Busby MD - Last Filed: 12/15/24 06:03> MDM - OB/Uterine Contractions MDM Narrative Medical decision making narrative: Patient is a 34-year-old female who presents to the ER with vaginal bleeding following a miscarriage. She reports her last menstrual period was September 20, 2024. Patient reports she has had weekly ultrasounds with her OBGYN and they were never able to detect heart rate. She reports she was approximately 9 weeks when she miscarried. Patient reports she has had moderate amount of vaginal bleeding since the diagnosis, but today around 4:30 p.m. she started passing ?large blood clots. She reports I have been bleeding through everything. Patient reports this is her 3rd with 2 vaginal deliveries. She reports her hCG levels have dropped from 31,000 down to 12,000 on Wednesday, 2 days ago. Patient reports she spoke with Dr. Vergara who advised her to come into the ER for further evaluation. She denies any urinary symptoms, recent fevers, or back pain. Patient denies any medical history relevant to this ER visit. Labs Ordered: CBC, CMP, beta hCG, UA Imaging Ordered: None necessary Medications Ordered: Normal saline Results: Patient's CBC indicates a hemoglobin of 11.4, RBCs of 3.73, hematocrit of 34.3%. Her coags were within normal limits. Patient's chemistry indicates a sodium of 135, creatinine of 0.68. Her beta hCG was 10,287. Diagnosis: Miscarriage, vaginal bleeding Consults: 2400-spoke with OBGYN, Dr. Vergara, who agrees with plan to admit patient to the hospital. He request patient remain NPO after midnight. Patient will most likely have of procedure in the morning. Results of imaging and lab work shared with patient. It was advised patient be admitted to the hospital for further evaluation and treatment. Patient verbalized understanding and are in agreement with plan. <Mariana Lang APRN - Last Filed: 12/15/24 02:00> Differential Diagnosis Differential diagnosis: Likely other (Miscarriage, vaginal bleeding, retained products of conception) <Mariana Lang APRN - Last Filed: 12/15/24 02:00> Lab Data Attestation: I reviewed the patient's lab results. <Mariana Lang APRN - Last Filed: 12/15/24 02:00> Result diagrams: 12/15/24 01:00 12/14/24 22:31 <Mariana Lang APRN - Last Filed: 12/15/24 02:00> Labs: Lab Results 12/14/24 Range/Units 22:31 WBC 6.1 (4.5-10.0) K/mm3 RBC 3.73 L (4.2-5.4) M/mm3 Hgb 11.4 L (12.0-15.0) g/dL Hct 34.3 L (37.0-47.0) % MCV 92.0 (80-100) fl MCH 30.6 (26-34) pg MCHC 33.2 (32-36) g/dl RDW 12.0 (11.5-14.5) % Plt Count 227 (150-375) k/mm3 MPV 9.9 (7.4-10.4) fl Immature Gran % (Auto) 0.2 (0-0.5) % Neut % (Auto) 50.9 (45.5-73.1) % Lymph % (Auto) 39.3 (18.3-44.2) % Maverick % (Auto) 6.3 (2.6-8.5) % Eos % (Auto) 2.6 (0-4.4) % Baso % (Auto) 0.7 (0.2-1.2) % Lymph # (Auto) 2.39 (0.9-3.2) K/mm3 Maverick # (Auto) 0.4 (0.1-0.6) K/mm3 Eos # (Auto) 0.2 (0-0.3) K/mm3 Baso # (Auto) 0.0 (0.0-0.1) K/mm3 Abs Immat Gran (auto) 0.01 (0.00-0.031) K/mm3 Absolute Neuts (auto) 3.1 (1.3-6.7) K/mm3 Absolute Nucleated RBC 0.000 (0.0-0.012) K/mm3 Nucleated RBC % 0.0 (0.0-0.2) % PT 12.3 (11.1-14.7) Seconds INR 0.9 APTT 24.7 (22.3-36.8) Seconds Sodium 135 L (137-145) mmol/L Potassium 3.8 (3.4-5.0) mmol/L Chloride 104 (98-107) mmol/L Carbon Dioxide 27 (22-30) mmol/L Anion Gap 4 (4-12) mmol/L BUN 17 (7-17) mg/dL Creatinine 0.68 L (0.7-1.0) mg/dL Estim Creat Clear Calc 110 ml/min Estimated GFR > 60 (59 - ) Glucose 89 (65-110) mg/dL Calcium 9.3 (8.4-10.2) mg/dL Total Bilirubin < 0.1 L (0.2-1.3) mg/dL AST 22 (14-36) U/L ALT 15 (6-35) U/L Alkaline Phosphatase 40 (38-126) U/L Total Protein 6.6 (6.3-8.2) g/dL Albumin 4.1 (3.5-5.1) g/dL Beta HCG, Quant 94242.00 mIU/ML Blood Type A Positive Antibody Screen Negative Doses of RhIg Required 0 <Mariana Lang, JIGSAWYER - Last Filed: 12/15/24 02:00> Lab Results 12/14/24 Range/Units 22:31 WBC 6.1 (4.5-10.0) K/mm3 RBC 3.73 L (4.2-5.4) M/mm3 Hgb 11.4 L (12.0-15.0) g/dL Hct 34.3 L (37.0-47.0) % MCV 92.0 (80-100) fl MCH 30.6 (26-34) pg MCHC 33.2 (32-36) g/dl RDW 12.0 (11.5-14.5) % Plt Count 227 (150-375) k/mm3 MPV 9.9 (7.4-10.4) fl Immature Gran % (Auto) 0.2 (0-0.5) % Neut % (Auto) 50.9 (45.5-73.1) % Lymph % (Auto) 39.3 (18.3-44.2) % Maverick % (Auto) 6.3 (2.6-8.5) % Eos % (Auto) 2.6 (0-4.4) % Baso % (Auto) 0.7 (0.2-1.2) % Lymph # (Auto) 2.39 (0.9-3.2) K/mm3 Maverick # (Auto) 0.4 (0.1-0.6) K/mm3 Eos # (Auto) 0.2 (0-0.3) K/mm3 Baso # (Auto) 0.0 (0.0-0.1) K/mm3 Abs Immat Gran (auto) 0.01 (0.00-0.031) K/mm3 Absolute Neuts (auto) 3.1 (1.3-6.7) K/mm3 Absolute Nucleated RBC 0.000 (0.0-0.012) K/mm3 Nucleated RBC % 0.0 (0.0-0.2) % PT 12.3 (11.1-14.7) Seconds INR 0.9 APTT 24.7 (22.3-36.8) Seconds Sodium 135 L (137-145) mmol/L Potassium 3.8 (3.4-5.0) mmol/L Chloride 104 (98-107) mmol/L Carbon Dioxide 27 (22-30) mmol/L Anion Gap 4 (4-12) mmol/L BUN 17 (7-17) mg/dL Creatinine 0.68 L (0.7-1.0) mg/dL Estim Creat Clear Calc 110 ml/min Estimated GFR > 60 (59 - ) Glucose 89 (65-110) mg/dL Calcium 9.3 (8.4-10.2) mg/dL Total Bilirubin < 0.1 L (0.2-1.3) mg/dL AST 22 (14-36) U/L ALT 15 (6-35) U/L Alkaline Phosphatase 40 (38-126) U/L Total Protein 6.6 (6.3-8.2) g/dL Albumin 4.1 (3.5-5.1) g/dL Beta HCG, Quant 31632.00 mIU/ML Blood Type A Positive Antibody Screen Negative Doses of RhIg Required 0 <Ana Rosa Busby MD - Last Filed: 12/15/24 06:03> Discharge Plan Discharge Clinical Impression: Vaginal bleeding, Incomplete <Mariana Lang APRN - Last Filed: 12/15/24 02:00> Patient Disposition: Still a Patient <Mariana Lang APRN - Last Filed: 12/15/24 02:00> Condition: Stable <Mariana Lang APRN - Last Filed: 12/15/24 02:00>
[2024-12-15] MEDS: SODIUM CHLORIDE 0.9% IV 1,000 ML 125 ML IV CONT (00:14)
[2024-12-15 01:05] LABS: Hematocrit 31.8 % (37.0-47.0); Hemoglobin 10.5 g/dL (12.0-15.0)
--- NOTE | 2024-12-15 04:57 | OBADM ---
This patient, Helen Belle, admitted to the OB room OB Post 111 for observation. Patient/family oriented to hospital policies and general routines including ID bracelet, bed and alarms, visiting hours, pain management, procedures, bathroom and other care routines, personal items, smoking policy, room service/diet, and visiting hours. Patient/Family are encouraged to report perceived risks to care and to ask questions if they do not understand what they are told or what they should do.
[2024-12-15 05:30] VITALS: BP 97/58; PULSE 71; RESP 16; TEMP 37.1; O2SAT 98
[2024-12-15 11:10] VITALS: BP 95/54; PULSE 66; TEMP 37; O2SAT 100
[2024-12-15 11:12] VITALS: TEMP 36.7
--- NOTE | 2024-12-15 11:52 | WPDANESEPPF ---
Anes - Initial Pre Proc Eval Procedure: Operation Date: 12/15/24 12:00 Proposed Procedures p Suction Dilatation And Curettage - Gary Vergara MD Date/Time: 12/15/24 11:52 Surgeon: Gary Vergara MD Pre Op Diagnosis: Vaginal Bleeding ,miscarriage Patient Data Age: 34 Gender: F Height: 1.8 m Weight: 70.45 kg Last Vital Signs Temp 98.1 F 12/15/24 11:12 Pulse 66 12/15/24 11:10 Resp 16 12/15/24 05:30 BP 95/54 L 12/15/24 11:10 Pulse Ox 100 12/15/24 11:10 O2 Del Method Room Air 12/15/24 11:12 Allergies Allergy/AdvReac Type Severity Reaction Status Date / Time No Known Allergies Allergy Verified 12/15/24 04:56 Home Medications ?Medication ?Instructions ?Recorded ?Confirmed ?Type vit no.95-ferrous 1 tablet PO DAILY 02/23/20 12/15/24 History fumarate 28 mg-folic acid 800 mcg tablet () Laboratory Tests 12/14/24 12/15/24 22:31 01:00 WBC 6.1 K/mm3 (4.5-10.0) RBC 3.73 L M/mm3 (4.2-5.4) Hgb 11.4 L g/dL 10.5 L g/dL (12.0-15.0) (12.0-15.0) Hct 34.3 L % 31.8 L % (37.0-47.0) (37.0-47.0) MCV 92.0 fl (80-100) MCH 30.6 pg (26-34) MCHC 33.2 g/dl (32-36) RDW 12.0 % (11.5-14.5) Plt Count 227 k/mm3 (150-375) MPV 9.9 fl (7.4-10.4) Immature Gran % (Auto) 0.2 % (0-0.5) Neut % (Auto) 50.9 % (45.5-73.1) Lymph % (Auto) 39.3 % (18.3-44.2) Hickman % (Auto) 6.3 % (2.6-8.5) Eos % (Auto) 2.6 % (0-4.4) Baso % (Auto) 0.7 % (0.2-1.2) Lymph # (Auto) 2.39 K/mm3 (0.9-3.2) Hickman # (Auto) 0.4 K/mm3 (0.1-0.6) Eos # (Auto) 0.2 K/mm3 (0-0.3) Baso # (Auto) 0.0 K/mm3 (0.0-0.1) Abs Immat Gran (auto) 0.01 K/mm3 (0.00-0.031) Absolute Neuts (auto) 3.1 K/mm3 (1.3-6.7) Absolute Nucleated RBC 0.000 K/mm3 (0.0-0.012) Nucleated RBC % 0.0 % (0.0-0.2) PT 12.3 Seconds (11.1-14.7) INR 0.9 APTT 24.7 Seconds (22.3-36.8) Sodium 135 L mmol/L (137-145) Potassium 3.8 mmol/L (3.4-5.0) Chloride 104 mmol/L (98-107) Carbon Dioxide 27 mmol/L (22-30) Anion Gap 4 mmol/L (4-12) BUN 17 mg/dL (7-17) Creatinine 0.68 L mg/dL (0.7-1.0) Estim Creat Clear Calc 110 ml/min Estimated GFR > 60 (59 - ) Glucose 89 mg/dL (65-110) Calcium 9.3 mg/dL (8.4-10.2) Total Bilirubin < 0.1 L mg/dL (0.2-1.3) AST 22 U/L (14-36) ALT 15 U/L (6-35) Alkaline Phosphatase 40 U/L (38-126) Total Protein 6.6 g/dL (6.3-8.2) Albumin 4.1 g/dL (3.5-5.1) Beta HCG, Quant 82517.00 mIU/ML Blood Type A Positive Antibody Screen Negative Doses of RhIg Required 0 Patient hx anesthesia problems: none Family hx anesthesia problems: none Results Review: All pre-operative results and documents have been reviewed as part of the pre-operative evaluation. [facility] Family History Family History Mother Diabetes mellitus Breast cancer Father Hypertension Grandparent Diabetes mellitus Social History Social History Smoking status: Never smoker Substance use: never Lack of Transportation: No Lack of Food: Never True Current Housing: I Have Housing Concerned About Future Housing: No Difficulty Paying Gas/Electric Bills: No Difficulty Paying for Meds: No Currently Unemployed: No Education: Master's Degree or Higher Difficulty w/ Childcare or Family Care: No Gender identity (if verbalized by the patient): Female Spiritual care concerns: No Anes - Eval Final PreProcedure Day of Procedure 12/15/24 11:52 Patient weight: normal Lungs: normal air movement Airway: Mallampati scale class II Neurological: alert and oriented Last oral intake: >/= 8 hours ASA classification: I Emergent: no Anesthetic plan: proceed Anesthesia type and monitoring: general GIVS and standard monitoring Results Review: All pre-operative results and documents have been reviewed as part of the pre-operative evaluation. Healthy pt, BMI 21. Informed Consent: The patient's anesthetic plan and its attendant risks and benefits were discussed with the patient/family/POA. Questions were solicited and answers provided to the satisfaction of the patient/family/POA.
--- NOTE | 2024-12-15 11:58 | P.HP_ITS ---
H&P: HPI History of Present Illness Date/Time: 12/15/24 11:58 Chief Complaint: Vaginal bleeding Narrative: 34-year-old multiparous female with incomplete miscarriage. She was monitoring a likely miscarriage. Presented last night to the emergency department with very heavy vaginal bleeding. Was evaluated and found to have an in the gestational sac within the uterine cavity and heavy bleeding. Her HCGs and u ltrasounds are conclusive for missed miscarriage or incomplete miscarriage. Agreed to proceed suction D and C. She understands risks, benefits and alternatives. She has completed informed consent process is ready to proceed. The patient understands the details of the procedure. The procedure has been explained in detail. She understands the risks. She understands that injuries may occur that result in hospitalization, more surgery, and severe illness. She understands risk of hemorrhage and infection. She denies any chest pain or shortness of breath. She denies any nausea, vomiting, fever, chills. Review of Systems Review of Systems: All systems reviewed & are unremarkable except as noted in HPI and below Constitutional: Constitutional: Denies chills, Denies fatigue, Denies fever(s) and Denies weakness Eyes: Eyes: Denies blurry vision, Denies change in vision, Denies loss of peripheral vision, Denies loss of vision, Denies other visual disturbances and Denies eye pain ENT: Denies vertigo, Denies dizziness, Denies hearing loss, Denies mouth pain, Denies nasal obstruction, Denies neck mass and Denies neck pain Cardiovascular: Cardiovascular: Denies chest pain, Denies diaphoresis, Denies syncope, Denies leg edema and Denies dyspnea Respiratory: Respiratory: Denies chest congestion, Denies cough, Denies hemoptysis, Denies dyspnea and Denies wheezing Gastrointestinal: Gastrointestinal: Denies abdominal pain, Denies constipation, Denies diarrhea, Denies nausea and Denies vomiting Genitourinary: Genitourinary: Denies hematuria, Denies change in libido, Denies nocturia, Denies genital lesions, Denies flank pain and Denies urinary urgency Musculoskeletal: Musculoskeletal: Denies abnormal gait, Denies back pain, Denies myalgias, Denies arthralgias, Denies joint swelling, Denies muscle weakness and Denies neck pain Integumentary/Breasts: Skin/Breast: Denies swelling, Denies breast pain, Denies breast mass, Denies dry skin, Denies nipple discharge, Denies unusual bruising and Denies jaundice Neurologic: Denies Neuro-related abnormal movements, Denies Abnormal speech present, Denies abnormal gait, Denies behavioral changes, Denies confusion, Denies vertigo, Denies dizziness, Denies syncope, Denies loss of vision, Denies memory loss, Denies convulsions and Denies weakness Psychiatric: Psychiatric: Denies abnormal sleep pattern, Denies behavioral changes, Denies change in libido, Denies confusion, Denies depression, Denies anhedonia and Denies memory loss Endocrine: Endocrine: Reports no additional endocrine complaints, Denies change in libido and Denies fatigue Hematologic/Lymphatic: Hematologic/Lymphatic: Reports no additional hematologic/lymphatic complaints Allergic/Immunologic: Allergic/Immunologic: Reports no additional allergic/immunologic complaints and Denies wheezing PMFSH Family History Family History Mother Diabetes mellitus Breast cancer Father Hypertension Grandparent Diabetes mellitus Social History Social History Smoking status: Never smoker Substance use: never Lack of Transportation: No Lack of Food: Never True Current Housing: I Have Housing Concerned About Future Housing: No Difficulty Paying Gas/Electric Bills: No Difficulty Paying for Meds: No Currently Unemployed: No Education: Master's Degree or Higher Difficulty w/ Childcare or Family Care: No Gender identity (if verbalized by the patient): Female Spiritual care concerns: No Meds Home Medications and Allergies Home Medications ?Medication ?Instructions ?Recorded ?Confirmed ?Type vit no.95-ferrous 1 tablet PO DAILY 02/23/20 12/15/24 History fumarate 28 mg-folic acid 800 mcg tablet () Allergies Allergy/AdvReac Type Severity Reaction Status Date / Time No Known Allergies Allergy Verified 12/15/24 04:56 Vital Signs Vital Signs - 24 hr 12/14/24 21:43 12/15/24 05:30 12/15/24 11:10 Temperature 97.9 F 98.8 F 98.6 F Pulse Rate 85 71 66 Respiratory Rate 18 16 Blood Pressure 121/80 97/58 L 95/54 L Pulse Oximetry 100 98 100 Oxygen Delivery Room Air 12/15/24 11:12 Temperature 98.1 F Pulse Rate Respiratory Rate Blood Pressure Pulse Oximetry Oxygen Delivery Room Air Exam Const: General: cooperative, healthy appearing, comfortable and no acute distress Orientation/consciousness: oriented to person, oriented to place and oriented to time HENMT: Head: normal to inspection Ears: external ears normal Face/Nose/Sinus: Normal external nose present and normal facial exam Face and sinus: normal facial exam Eyes: General: appearance normal, both eyes and all related structures Neck: Neck: normal visual inspection, trachea midline and supple Resp: Auscultation: clear to auscultation bilaterally, no crackles, no rales, no rhonchi and no wheezes Cardio: Rate: regular rate Rhythm: regular rhythm Heart sounds: no click, no murmurs and no rubs GI: GI Palp: No abdominal tenderness, No Soft to palpation, No Tenderness to palpation present (GI) and No Palpable mass present Auscultation: normal bowel sounds Skin: General skin exam: normal color and no rashes or lesions noted Neuro: General: oriented to person, oriented to place and oriented to time Extrem: General: normal to inspection, no joint enlargement, no clubbing, cyanosis or edema, no pedal edema and no calf tenderness Psych: Appearance: grossly normal Mental Status: mental status grossly norm al Speech and movement: Normal speech and movement present H&P: Results Labs Labs: Short CBC 12/14/24 12/15/24 Range/Units 22:31 01:00 WBC 6.1 (4.5-10.0) K/mm3 Hgb 11.4 L 10.5 L (12.0-15.0) g/dL Hct 34.3 L 31.8 L (37.0-47.0) % Plt Count 227 (150-375) k/mm3 BMP 12/14/24 22:31 Sodium 135 L Potassium 3.8 Chloride 104 Carbon Dioxide 27 BUN 17 Creatinine 0.68 L Glucose 89 Calcium 9.3 Liver Function 12/14/24 Range/Units 22:31 Total Bilirubin < 0.1 L (0.2-1.3) mg/dL AST 22 (14-36) U/L ALT 15 (6-35) U/L Alkaline Phosphatase 40 (38-126) U/L Albumin 4.1 (3.5-5.1) g/dL Assessment and Plan Assessment and plan (1) Incomplete miscarriage: Code(s): O03.4 - Incomplete spontaneous without complication Status: Acute Plan 34-year-old multiparous female with incomplete miscarriage. She was monitoring a likely miscarriage. Presented last night to the emergency department with very heavy vaginal bleeding. Was evaluated and found to have an in the gestational sac within the uterine cavity and heavy bleeding. Her HCGs and ultrasounds are conclusive for missed miscarriage or incomplete miscarriage. Agreed to proceed suction D and C. She understands risks, benefits and alternatives. She has completed informed consent process is ready to proceed.
--- NOTE | 2024-12-15 11:58 | WPDHPUPDATE1 ---
History and Physical Update Update Date/Time: 12/15/24 11:58 History and Physical has been reviewed, including an updated exam of the patient. There are NO changes in the patient's condition. Risks, benefits, and alternatives have been discussed and questions answered. Patient agrees to proceed with procedure.
[2024-12-15] MEDS: LIDOCAINE 1% LOCAL INJ 10 ML VIAL INFILTRATE (12:18)
--- NOTE | 2024-12-15 12:25 | S_PTH ---
PATIENT: Helen Belle LOC: [facility] U#:[id number] AGE/SX: 34/F ROOM: 111 RE12/14/[address]: Gary Vergara MD : 1990 BED: 00 DIS: 12/15/2024 SPEC #: [id number] RECD: 12/15/24 13:17 STATUS: JUAN JOSÉ REQ #: [id number] BUCKY: 12/15/24 12:[address]: Gary Vergara DEPT: [facility] Surgical RECD BY: Katia Cornelius ENTERED: 12/15/24 13:18 SP TYPE: Surgical OTHR DR: DIGITAL LEARNING PLATFORMS MANAGER PHYSICIAN Gareth Bravo MD Tissues: A - Products of Conception Procedures: Hematoxylin and Eosin Stain Gross and Microscopic Level 4
[2024-12-15 12:32] VITALS: BP 104/70; PULSE 75; RESP 14; TEMP 36.1; O2SAT 99
[2024-12-15] MEDS: LACTATED RINGERS 1,000 ML 30 ML IV CONT (12:32)
[2024-12-15 12:45] VITALS: BP 104/70; PULSE 50; RESP 16; O2SAT 100
[2024-12-15 12:58] VITALS: BP 103/74; PULSE 55; RESP 16; O2SAT 100
--- NOTE | 2025-01-09 07:44 | W.PM.PROC2 ---
Procedure Note - Detailed Date of Procedure 01/09/25 Pre-op Diagnosis Vaginal Bleeding ,miscarriage Post-op Diagnosis Same Procedure Performed Suction D&C Surgeon Gary Vergara MD Anesthesia MAC Indications missed Findings normal-appearing vulva vagina and cervix to. Moderate amount of products conception within the uterus. 8 cm uterus Description of Procedure the patient was taken the operating room. She was prepped and draped in dorsal lithotomy position after induction of mac anesthesia. A speculum was placed in the vagina. Cervix grasped with tenaculum. The cervix was dilated to about 1 cm Using [place] dilators. A 8. Romansh curved curette was used to perform suction D&C. The curette was introduced and vacuum was applied. The curette was removed over all surfaces of the intrauterine cavity multiple times. This was done until all the surfaces were clear and had the familiar grainy texture they can be felt through the instrument. A sharp curette was then used to curettage all the surfaces. The suction cup was then reapplied 1 more time to remove any debris. The instruments were removed. The speculum and tenaculum were removed. The patient tolerated the procedure well. She was taken recovery room stable condition. Estimated Blood Loss 50 Urine Output 600 Drains No Packing No Pathology Yes Complications No immediate complications Condition Stable Disposition PACU
--- NOTE | 2025-01-09 10:17 | P.DS_ITS ---
DS: Admitting Diagnosis Discharge Date 12/15/24 Admitting Diagnosis Incomplete miscarriage, hemorrhage DS: Discharge Diagnosis Discharge Diagnosis (1) Incomplete miscarriage: Code(s): O03.4 - Incomplete spontaneous without complication Status: Acute DS: Summary Hospital Course Hospital Course: Patient is a 34-year-old female, multiparous, presented emergency department with incomplete miscarriage and hemorrhage. She was observed for period time until suction D and C could be performed. She was observed for some additional hours after the D&C and then discharged home. She has stable throughout that time. She had short-term follow-up. Time Spent with Patient Time attestation: Total time spent providing and/or coordinating discharge services: DS: Data Data Completed and Pending Completed studies during hospitalization: Pending at discharge 12/15/24 12:25 Surgical [PTH] Routine Discharge Plan Discharge Attending physician on discharge: Gary Vergara Consulting providers: Gareth Bravo; Baudilio Cardenas Discharging Clinician: Gary Vergara Patient Disposition: Home Activity: pelvic rest Diet: regular Discharge Instructions: Follow-Up:? ? Call your Provider's office for an appointment to be seen in: ? ? * [facility] offers a and Loss Support group which meets the Wednesday of every month from 6:30pm-8:30pm.? * If consent was given, you will be contacted by the Share Coordinator to check in on you.? * If you have questions regarding the grieving process or would like more resources or support, you can call the?Share Coordinator at [phone] or via email at [email or web address] *The staff at [facility] wishes to extend our deepest sympathy during this very difficult time.? ? ?PERINEAL CARE:? ? * Until bleeding stops, use your david bottle after urinating? * Change your pad frequently throughout the day? * You may take sitz baths several times a day (fill your bathtub with warm water and soak for 20 minutes.)? Do NOT bathe in the water? * No tub baths until seen by your physician - You may shower? ? BLEEDING:? * Each individual will experience vaginal bleeding, but it will vary with each situation and individual woman.? * Vaginal bleeding will go thru cycles-from bright red, to pinkish to a white, creamy discharge.? This is considered normal.? You may also experience a brownish discharge which is also normal.? ? DIET AND NUTRITION:? * Eat at least 3 regular, well-balanced meals per day: include all 4 food groups daily.?? * You may prefer 6 small meals.? * Drink 6-8 glasses of water or non-caffeinated beverages per day.? * Loss of appetite is common with loss.? We encourage you to try to eat; this will help with both your physical and emotional health.? ? ACTIVITY:? ? * Rest as much as possible during the day.? * Do not exercise or lift anything heavier than 10 pounds (such as laundry or other children.)? * Avoid stairs or driving as much as possible, especially if you are taking pain medication.? * Do not put anything into the vagina.? No douching, tampons, or sexual activity until seen and released by your physician.? * Listen to your body, and do not do what is uncomfortable or painful.? ? ? EMOTIONAL HEALTH:? ? * This is a very difficult and sad time for you and your family, friends, and other children.? * It is okay to be sad and to cry.? Denial, anger, and guilt are also normal stages that you and your family may go thru during this time.? Each person reaches these stages at their own pace.? * Keep the lines of communication open between family and friends and ask for help if needed.? ? ? NOTIFY PHYSICIAN IF YOU HAVE ANY QUESTIONS OR IF ANY OF THE FOLLOWING SYMPTOMS OCCUR:? ? * If you feel any desire to harm yourself or others, contact your physician immediately or go to the nearest emergency room.? *If your episiotomy or incision becomes red, swollen, or more painful than what you have experienced in the hospital.? * If your vaginal bleeding becomes foul smelling.? * If your vaginal bleeding becomes heavier than a period or if your bleeding changes from pink to bright red.? However, you may pass an occasional walnut- sized clot once or twice for the first week .? * If you experience a sharp, shooting pain in you calves.? * If you discover a hard, reddened area on your breast or if you experience flu- like symptoms.? * If you develop a temperature of 100.4 or greater.? * If you are unable to eat or sleep and take care of activities that sustain life.? Patient Language: Uzbek Stand Alone Forms: General Discharge Information Follow-up/Referrals: Gary Vergara MD [Physician, RAW MATERIAL PLANNER] Discharge Medications: No Action PNV no.95-ferrous fumarate-FA [] 28 mg iron- 800 mcg Tablet 1 tablet PO DAILY Date of admission: 12/14/24 23:47 Primary Care Provider: PHYSICIAN,BREEDING TECHNICIAN Admitting Provider: Gary Vergara Attending physician on admission: Gary Vergara Condition: Stable
== END 2024-12-15 14:25 | disposition home or self-care (01) ==
LOC: ANHED 12-15 00:12 → ANHOBPP 12-15 01:02
PROVIDERS: Emergency Medicine; Admitting Provider Obstetrics & Gynecology; Emergency Provider Registered Nurse; Visit Provider Obstetrics & Gynecology
PROC: (CPT 59812; principal; 2024-12-15 12:00)
DX: O03.1 Delayed or excessive hemorrhage following incomplete spontaneous abortion (principal); O03.4 Incomplete spontaneous abortion without complication; Z83.3 Family history of diabetes mellitus; Z80.3 Family history of malignant neoplasm of breast; Z82.49 Family history of ischemic heart disease and other diseases of the circulatory system
CPT/HCPCS: 59812; 36415; 76801; 76817; 80053; 84702; 85014; 85018; 85025; 85461; 85610; 85730; 86850; 86900; 86901; 88305; 96374; 99285; G0378; J2003; J2250; J2405; J2704; J3010; J7030; J7120